=== PATIENT | male | born 2000 | race Caucasian/White ===

== ENCOUNTER 2018-12-05 07:50 | Inpatient (IN) | payer OTHER ==
[~2018-12-05] VITALS: Ht 180.3 cm; Wt 158.0 kg
[~2018-12-05 07:50] MED LIST: ACET-915; AMLO-145 PO; ATOR40TA68 PO; CHOL400C PO; DULO30CA45 PO; EMPA10TA PO; EMPA25TA PO; GLIM2TAB2 PO; Insulin Glargine SC; METF500T3 PO; METO-448 PO; METR-121 PO; NOVO3I SC; REPA2TAB23 PO
[2018-12-05] MEDS ORDERED: SOD CHLORIDE 0.9% 1,000 ML IV STA (08:26)
[2018-12-05] MEDS ORDERED: ONDANSETRON 4 MG INJ IV STA ×2 (08:26→10:50)
[2018-12-05] MEDS ORDERED: morphine 4 MG/ML VIAL IV STA (09:58)
[2018-12-05] MEDS ORDERED: ACETAMINOPHEN 325 MG TAB PO PRN (11:30)
[2018-12-05] MEDS ORDERED: ONDANSETRON 4 MG INJ IV PRN (11:30)
[2018-12-05 13:00] VITALS: BP 138/72; PULSE 93; RESP 18; BMI 49.2
[2018-12-05] MEDS ORDERED: ACETAMINOPHEN 650 MG SUPP PR PRN (15:00)
[2018-12-05] MEDS ORDERED: NACL 0.9% 3 ML SYG IV SCH (15:00)
[2018-12-05] MEDS ORDERED: MAGNESIUM HYDROXIDE 30ML CUP PO PRN (15:00)
[2018-12-05] MEDS ORDERED: CEFTRIAXONE 1 GM/50 ML (PMX) 50 ML IVPB SCH (15:00)
[2018-12-05] MEDS ORDERED: DOCUSATE SODIUM 100 MG CAP PO PRN (15:00)
[2018-12-05] MEDS: morphine 2 MG INJ IV PRN ×2 (16:02→20:21)
[2018-12-05] MEDS: DEXTROSE 5%-0.45% NACL 1,000 ML IV SCH (16:07)
[2018-12-05] MEDS ORDERED: DEXTROSE 50% 50 ML SYRINGE IV PRN ×2 (16:30)
[2018-12-05] MEDS ORDERED: GLUCAGON 1 MG INJ IM PRN (16:30)
[2018-12-05] MEDS ORDERED: GLUCOSE GEL 15 GRAM TUBE BUCCAL PRN (16:30)
[2018-12-05] MEDS ORDERED: GLUCOSE GEL 15 GRAM TUBE PO PRN ×2 (16:30)
[2018-12-05 16:49] VITALS: BP 133/74; PULSE 90; RESP 18
[2018-12-05] MEDS: INSULIN ASPART [NOVOLOG] 3 ML PEN SC SCH ×2 (17:39→21:06)
[2018-12-05 20:00] VITALS: BP 145/78; PULSE 132; RESP 18
[2018-12-05] MEDS: ONDANSETRON 4 MG INJ IV PRN (20:43)
[2018-12-06] VITALS (15 sets, daily range): BP systolic 125–163; BP diastolic 58–84; PULSE 127–145; RESP 18–39; Ht 180.3 cm; Wt 158.0 kg
[2018-12-06] MEDS: DEXTROSE 5%-0.45% NACL 1,000 ML IV SCH ×2 (00:23→05:16)
[2018-12-06] MEDS: DILTIAZEM 25 MG INJ IV PRN ×2 (00:56→04:04)
[2018-12-06] MEDS: INSULIN ASPART [NOVOLOG] 3 ML PEN SC SCH ×3 (01:00→08:56)
[2018-12-06] MEDS: ZOLPIDEM 5 MG TAB PO PRN ×2 (01:42→22:15)
[2018-12-06] MEDS: ONDANSETRON 4 MG INJ IV PRN ×2 (02:25→22:47)
[2018-12-06] MEDS: morphine 2 MG INJ IV PRN (02:26)
[2018-12-06] MEDS: PANTOPRAZOLE 40 MG INJ IV SCH (06:38)
[2018-12-06] MEDS ORDERED: LACTATED RINGER'S 1,000 ML IV SCH (08:30)
[2018-12-06] MEDS: SOD CHLORIDE 0.9% 1,000 ML IV SCH ×3 (09:27→16:39)
[2018-12-06] MEDS ORDERED: ACCU-CHEK XX ONE ×2 (09:30→14:00)
[2018-12-06] MEDS ORDERED: INSULIN ASPART [NOVOLOG] 3 ML PEN SC ONE ×2 (09:30→12:00)
[2018-12-06] MEDS ORDERED: SOD CHLORIDE 0.9% 500 ML IV ONE (12:00)
[2018-12-06] MEDS: ACCU-CHEK XX SCH ×12 (12:30→23:44)
[2018-12-06] MEDS ORDERED: METOPROLOL 5 MG INJ IV PRN (12:30)
[2018-12-06] MEDS ORDERED: DEXTROSE 50% 50 ML SYRINGE IV PRN ×2 (12:30)
[2018-12-06] MEDS ORDERED: SOD CHLORIDE 0.9% 1,000 ML IV SCH (12:43)
[2018-12-06] MEDS: MEROPENEM 500MG/50 ML (PMX) 50 ML IVPB SCH ×2 (13:25→20:35)
[2018-12-06] MEDS: INSULIN HUMAN REGULAR 100 UNIT in SOD CHLORIDE 0.9% 99 ML IV SCH (13:54)
[2018-12-06] MEDS ORDERED: SOD CHLORIDE 0.9% 1,000 ML IV ONE ×2 (14:00)
[2018-12-06] MEDS: METOPROLOL 5 MG INJ IV PRN ×2 (14:14→18:38)
[2018-12-06] MEDS: HYDROmorphONE 1 MG/ML SYG IV PRN (15:08)
[2018-12-07] VITALS (24 sets, daily range): BP systolic 122–160; BP diastolic 66–117; PULSE 118–139; RESP 20–39
[2018-12-07] MEDS: METOPROLOL 5 MG INJ IV PRN ×4 (00:24→19:02)
[2018-12-07] MEDS: ZOLPIDEM 5 MG TAB PO PRN (00:24)
[2018-12-07] MEDS: ACCU-CHEK XX SCH ×24 (00:39→23:30)
[2018-12-07] MEDS ORDERED: ZOLPIDEM 5 MG TAB PO ONE (01:00)
[2018-12-07] MEDS: SOD CHLORIDE 0.9% 1,000 ML IV SCH ×3 (02:09→20:17)
[2018-12-07] MEDS: INSULIN HUMAN REGULAR 100 UNIT in SOD CHLORIDE 0.9% 99 ML IV SCH ×2 (02:40→22:15)
[2018-12-07] MEDS: MEROPENEM 500MG/50 ML (PMX) 50 ML IVPB SCH ×3 (03:39→20:18)
[2018-12-07] MEDS: PANTOPRAZOLE 40 MG INJ IV SCH (06:03)
[2018-12-07] MEDS: HYDROmorphONE 1 MG/ML SYG IV PRN ×2 (06:22→17:06)
[2018-12-07] MEDS ORDERED: SOD CHLORIDE 0.9% 1,000 ML IV ONE (11:00)
[2018-12-08] VITALS (23 sets, daily range): BP systolic 131–189; BP diastolic 63–115; PULSE 107–130; RESP 25–39
[2018-12-08] MEDS: ACCU-CHEK XX SCH ×24 (00:30→23:43)
[2018-12-08] MEDS: METOPROLOL 5 MG INJ IV PRN ×2 (00:38→05:12)
[2018-12-08] MEDS: MEROPENEM 500MG/50 ML (PMX) 50 ML IVPB SCH ×3 (02:47→21:59)
[2018-12-08] MEDS: HYDROmorphONE 1 MG/ML SYG IV PRN ×2 (02:52→08:39)
[2018-12-08] MEDS: SOD CHLORIDE 0.9% 1,000 ML IV SCH ×3 (02:52→23:43)
[2018-12-08] MEDS: PANTOPRAZOLE 40 MG INJ IV SCH (05:07)
[2018-12-08] MEDS ORDERED: DILTIAZEM 25 MG INJ IV PRN (13:00)
[2018-12-08] MEDS: INSULIN HUMAN REGULAR 100 UNIT in SOD CHLORIDE 0.9% 99 ML IV SCH (14:46)
[2018-12-08] MEDS ORDERED: FUROSEMIDE 20 MG INJ ONE (17:59)
[2018-12-08] MEDS ORDERED: FUROSEMIDE 20 MG INJ IV ONE (18:00)
[2018-12-08] MEDS ORDERED: LOPERAMIDE 2 MG CAP PO PRN (19:30)
[2018-12-09] VITALS (20 sets, daily range): BP systolic 135–183; BP diastolic 58–113; PULSE 111–136; RESP 20–47
[2018-12-09] MEDS: ACCU-CHEK XX SCH ×23 (01:28→22:30)
[2018-12-09] MEDS: HYDROmorphONE 1 MG/ML SYG IV PRN ×3 (01:36→20:50)
[2018-12-09] MEDS: MEROPENEM 500MG/50 ML (PMX) 50 ML IVPB SCH ×3 (04:30→20:52)
[2018-12-09] MEDS: PANTOPRAZOLE 40 MG INJ IV SCH (05:43)
[2018-12-09] MEDS: SOD CHLORIDE 0.9% 1,000 ML IV SCH (08:00)
[2018-12-09] MEDS ORDERED: FUROSEMIDE 20 MG INJ IV SCH (09:00)
[2018-12-09] MEDS: METOPROLOL 5 MG INJ IV PRN (11:47)
[2018-12-09] MEDS ORDERED: CLONIDINE 0.2 MG/24 HR PATCH TRANSDERM SCH (12:30)
[2018-12-09] MEDS: metroNIDAZOLE 500 MG TAB PO SCH ×2 (15:37→22:30)
[2018-12-09] MEDS: hydrALAzine 20 MG INJ IV PRN (18:17)
[2018-12-09] MEDS: VANCOMYCIN HCL 250 MG/5ML POSYG PO SCH (18:59)
[2018-12-09] MEDS: LACTOBACILLUS RHAMNOSUS CAP PO SCH (20:53)
[2018-12-10] VITALS (20 sets, daily range): BP systolic 120–171; BP diastolic 51–91; PULSE 104–139; RESP 10–39
[2018-12-10] MEDS: VANCOMYCIN HCL 250 MG/5ML POSYG PO SCH ×5 (00:07→23:58)
[2018-12-10] MEDS: ACCU-CHEK XX SCH ×24 (00:07→23:59)
[2018-12-10] MEDS: MEROPENEM 500MG/50 ML (PMX) 50 ML IVPB SCH ×3 (04:04→19:57)
[2018-12-10] MEDS: metroNIDAZOLE 500 MG TAB PO SCH ×3 (06:11→22:03)
[2018-12-10] MEDS: PANTOPRAZOLE 40 MG INJ IV SCH (06:11)
[2018-12-10] MEDS: LACTOBACILLUS RHAMNOSUS CAP PO SCH ×2 (08:24→19:57)
[2018-12-10] MEDS ORDERED: FUROSEMIDE 20 MG INJ IV ONE (13:30)
[2018-12-10] MEDS: HYDROmorphONE 1 MG/ML SYG IV PRN ×2 (13:34→22:08)
[2018-12-10] MEDS: INSULIN HUMAN REGULAR 100 UNIT in SOD CHLORIDE 0.9% 99 ML IV SCH (15:23)
[2018-12-10] MEDS: hydrALAzine 20 MG INJ IV PRN (15:29)
[2018-12-10] MEDS: INSULIN GLARGINE [LANTus] (100 UNITS/ML) SYG SC SCH (20:01)
[2018-12-11] VITALS (20 sets, daily range): BP systolic 113–166; BP diastolic 57–96; PULSE 87–108; RESP 15–38
[2018-12-11] MEDS: ACCU-CHEK XX SCH ×11 (02:01→11:34)
[2018-12-11] MEDS: MEROPENEM 500MG/50 ML (PMX) 50 ML IVPB SCH ×3 (04:04→22:29)
[2018-12-11] MEDS: metroNIDAZOLE 500 MG TAB PO SCH ×3 (05:54→22:30)
[2018-12-11] MEDS: PANTOPRAZOLE 40 MG INJ IV SCH (05:54)
[2018-12-11] MEDS: VANCOMYCIN HCL 250 MG/5ML POSYG PO SCH ×3 (05:54→16:54)
[2018-12-11] MEDS: HYDROmorphONE 1 MG/ML SYG IV PRN ×4 (06:02→23:04)
[2018-12-11] MEDS: LACTOBACILLUS RHAMNOSUS CAP PO SCH ×2 (08:23→22:30)
[2018-12-11] MEDS: INSULIN GLARGINE [LANTus] (100 UNITS/ML) SYG SC SCH ×2 (08:27→22:50)
[2018-12-11] MEDS: METOPROLOL 25 MG TAB PO SCH ×2 (14:14→22:33)
[2018-12-11] MEDS: INSULIN ASPART [NOVOLOG] 3 ML PEN SC SCH ×3 (16:55→21:00)
[2018-12-12] VITALS: BP 125/57; PULSE 91; RESP 23
[2018-12-12] MEDS: VANCOMYCIN HCL 250 MG/5ML POSYG PO SCH ×5 (00:49→23:31)
[2018-12-12 03:58] VITALS: BP 126/58; PULSE 80; RESP 20
[2018-12-12] MEDS: MEROPENEM 500MG/50 ML (PMX) 50 ML IVPB SCH ×3 (04:30→20:03)
[2018-12-12] MEDS: PANTOPRAZOLE (EC) 40 MG TAB PO SCH (06:01)
[2018-12-12] MEDS: metroNIDAZOLE 500 MG TAB PO SCH ×3 (06:01→21:21)
[2018-12-12 07:48] VITALS: BP 112/55; PULSE 93; RESP 24
[2018-12-12] MEDS: INSULIN ASPART [NOVOLOG] 3 ML PEN SC SCH ×7 (08:00→20:08)
[2018-12-12] MEDS: ACETAMINOPHEN 325 MG TAB PO PRN ×2 (09:19→21:20)
[2018-12-12] MEDS: LACTOBACILLUS RHAMNOSUS CAP PO SCH ×2 (09:20→20:04)
[2018-12-12] MEDS: METOPROLOL 25 MG TAB PO SCH ×2 (09:20→20:08)
[2018-12-12] MEDS: INSULIN GLARGINE [LANTus] (100 UNITS/ML) SYG SC SCH ×2 (10:27→20:51)
[2018-12-12 12:22] VITALS: BP 117/58; PULSE 81; RESP 24
[2018-12-12] MEDS ORDERED: PROMETHAZINE/DM (CUP) PO PRN (14:00)
[2018-12-12] MEDS: ALBUTEROL/IPRATROPIUM (NEB) 3 ML AMP HHN SCH ×2 (14:28→21:12)
[2018-12-12] MEDS: ENOXAPARIN 40 MG/0.4 ML SYG SC SCH (15:07)
[2018-12-12 15:35] VITALS: BP 127/58; PULSE 90; RESP 20
[2018-12-12 20:00] VITALS: BP 115/56; PULSE 87; RESP 20
[2018-12-13] VITALS: BP 115/59; PULSE 83; RESP 20
[2018-12-13] MEDS: ALBUTEROL/IPRATROPIUM (NEB) 3 ML AMP HHN SCH ×4 (01:56→19:51)
[2018-12-13] MEDS: MEROPENEM 500MG/50 ML (PMX) 50 ML IVPB SCH (03:46)
[2018-12-13 04:00] VITALS: BP 135/67; PULSE 86; RESP 21
[2018-12-13] MEDS: VANCOMYCIN HCL 250 MG/5ML POSYG PO SCH ×4 (05:58→23:53)
[2018-12-13] MEDS: PANTOPRAZOLE (EC) 40 MG TAB PO SCH (05:59)
[2018-12-13] MEDS: metroNIDAZOLE 500 MG TAB PO SCH ×3 (05:59→21:52)
[2018-12-13 07:26] VITALS: BP 138/70; PULSE 89; RESP 20
[2018-12-13] MEDS: INSULIN ASPART [NOVOLOG] 3 ML PEN SC SCH ×7 (08:00→21:00)
[2018-12-13] MEDS: ENOXAPARIN 40 MG/0.4 ML SYG SC SCH (08:10)
[2018-12-13] MEDS: INSULIN GLARGINE [LANTus] (100 UNITS/ML) SYG SC SCH (08:11)
[2018-12-13] MEDS: LACTOBACILLUS RHAMNOSUS CAP PO SCH ×2 (08:13→21:52)
[2018-12-13] MEDS: METOPROLOL 25 MG TAB PO SCH ×2 (08:13→21:52)
[2018-12-13 11:19] VITALS: BP 119/69; PULSE 82; RESP 20
[2018-12-13] MEDS ORDERED: SOD FERRIC GLUC COMPLX 125 MG in SOD CHLORIDE 0.9% 100 ML IVPB SCH (13:00)
[2018-12-13 15:12] VITALS: BP 112/57; PULSE 100; RESP 20
[2018-12-13] MEDS ORDERED: DEXTROSE 50% 50 ML SYRINGE IV PRN ×2 (18:00)
[2018-12-13] MEDS ORDERED: GLUCOSE GEL 15 GRAM TUBE BUCCAL PRN (18:00)
[2018-12-13] MEDS ORDERED: GLUCAGON 1 MG INJ IM PRN (18:00)
[2018-12-13] MEDS ORDERED: GLUCOSE GEL 15 GRAM TUBE PO PRN ×2 (18:00)
[2018-12-13 20:00] VITALS: BP 129/70; PULSE 95; RESP 18
[2018-12-13] MEDS: metFORMIN (XR) 500 MG TAB PO SCH (21:00)
[2018-12-13] MEDS: ACETAMINOPHEN 325 MG TAB PO PRN (22:08)
[2018-12-14] VITALS (7 sets, daily range): BP systolic 111–134; BP diastolic 54–77; PULSE 80–91; RESP 17–20
[2018-12-14] MEDS: ALBUTEROL/IPRATROPIUM (NEB) 3 ML AMP HHN SCH ×4 (02:20→20:05)
[2018-12-14] MEDS: PANTOPRAZOLE (EC) 40 MG TAB PO SCH (05:27)
[2018-12-14] MEDS: metroNIDAZOLE 500 MG TAB PO SCH ×3 (05:27→22:20)
[2018-12-14] MEDS: VANCOMYCIN HCL 250 MG/5ML POSYG PO SCH ×4 (05:27→23:05)
[2018-12-14] MEDS: ENOXAPARIN 40 MG/0.4 ML SYG SC SCH (08:12)
[2018-12-14] MEDS: metFORMIN (XR) 500 MG TAB PO SCH ×2 (08:13→22:20)
[2018-12-14] MEDS: INSULIN ASPART [NOVOLOG] 3 ML PEN SC SCH ×4 (08:13→21:00)
[2018-12-14] MEDS: LACTOBACILLUS RHAMNOSUS CAP PO SCH ×2 (08:13→22:20)
[2018-12-14] MEDS: METOPROLOL 25 MG TAB PO SCH ×2 (08:14→22:19)
[2018-12-14] MEDS: REPAGLINIDE 2 MG TAB PO SCH (17:55)
[2018-12-14] MEDS: FUROSEMIDE 20 MG INJ IV ONE ×2 (22:19→23:05)
[2018-12-15] MEDS: ALBUTEROL/IPRATROPIUM (NEB) 3 ML AMP HHN SCH ×2 (02:00→09:31)
[2018-12-15 04:00] VITALS: BP 148/67; PULSE 93; RESP 20
[2018-12-15] MEDS: VANCOMYCIN HCL 250 MG/5ML POSYG PO SCH ×2 (06:22→11:39)
[2018-12-15] MEDS: metroNIDAZOLE 500 MG TAB PO SCH (06:22)
[2018-12-15] MEDS: PANTOPRAZOLE (EC) 40 MG TAB PO SCH (06:22)
[2018-12-15 07:13] VITALS: BP 139/69; PULSE 85; RESP 20
[2018-12-15] MEDS: LACTOBACILLUS RHAMNOSUS CAP PO SCH (08:11)
[2018-12-15] MEDS: metFORMIN (XR) 500 MG TAB PO SCH (08:11)
[2018-12-15] MEDS: METOPROLOL 25 MG TAB PO SCH (08:12)
[2018-12-15] MEDS: ENOXAPARIN 40 MG/0.4 ML SYG SC SCH (08:17)
[2018-12-15] MEDS: INSULIN ASPART [NOVOLOG] 3 ML PEN SC SCH ×2 (08:18→11:41)
[2018-12-15] MEDS: REPAGLINIDE 2 MG TAB PO SCH ×2 (08:25→11:39)
[2018-12-15 11:14] VITALS: BP 139/69; PULSE 88; RESP 20
== END 2018-12-15 13:30 | disposition home health service (06) | DRG 438 ==
LOC: FTE 07:50 → TEL 11:15 → ICU 12-06 12:40 → 6WM 12-11 21:21
PROVIDERS: ADMIT Internal Medicine Nephrology; ATTEND Internal Medicine Nephrology
DX: K85.10 Biliary acute pancreatitis without necrosis or infection (principal); E11.10 Type 2 diabetes mellitus with ketoacidosis without coma; N17.0 Acute kidney failure with tubular necrosis; I50.31 Acute diastolic (congestive) heart failure; E87.2 Acidosis; E87.1 Hypo-osmolality and hyponatremia; Z68.42 Body mass index [BMI] 45.0-49.9, adult; R17 Unspecified jaundice; A04.8 Other specified bacterial intestinal infections; E87.5 Hyperkalemia; E88.89 Other specified metabolic disorders; R00.0 Tachycardia, unspecified; D72.829 Elevated white blood cell count, unspecified; R03.0 Elevated blood-pressure reading, without diagnosis of hypertension; R16.0 Hepatomegaly, not elsewhere classified; Z79.4 Long term (current) use of insulin; E66.01 Morbid (severe) obesity due to excess calories
CPT/HCPCS: 36415; 36600; 71045; 74176; 74181; 80048; 80053; 80061; 81001; 81003; 82150; 82247; 82248; 82270; 82550; 82553; 82652; 82803; 82962; 83010; 83036; 83540; 83615; 83690; 83735; 84100; 84439; 84443; 84481; 84484; 85025; 85045; 86308; 86644; 86703; 86704; 86709; 86803; 87075; 87081; 87340; 87529; 87536; 93005; 93306; 94640; 96374; 96375; 96376; 97116; 97162; 97530; C9113; J0360; J0696; J1170; J1650; J1815; J1940; J2185; J2270; J2405; J2916; J7030; J7042; J7120